=== PATIENT | male | born 1930 | race Caucasian/White ===

== ENCOUNTER 2016-10-05 09:14 | Emergency (ER) | payer OTHER, MEDICARE ==
[~2016-10-05] VITALS: Ht 170.2 cm; Wt 88.5 kg
--- NOTE | 2016-10-05 10:30 | ED EAR COMPLAINT ---
History of Present Illness General Chief Complaint: Ear Complaints Stated Complaint: R EAR PAIN Source: patient Exam Limitations: no limitations Vital Signs & Intake/Output Vital Signs & Intake/Output Vital Signs Date Time Temp Pulse Resp B/P B/P Pulse O2 O2 Flow FiO2 Mean Ox Delivery Rate 10/05 1107 98.4 76 18 126/84 98 Room Air 10/05 0924 98.6 94 16 130/84 97 Room Air Allergies Coded Allergies: shellfish derived (UNKNOWN 08/04/15) venom-honey bee (bee venom (honey bee)) (UNKNOWN 08/04/15) Reconcile Medications Gabapentin (Neurontin) 300 MG CAPSULE 1 CAP PO AD DIRECTED neuralgia 1 tab po qhs on day 1, 1 tab po qhs on day 2, 1 tab po bid x 2 days, then 1 tab po tid afterwards Triage Note: REPORTS 3 DAYS OF RIGHT EAR PAIN WITH NO HEARING LOSS. DENIED DISCHARGE. Triage Nurses Notes Reviewed? yes Onset: Gradual Duration: day(s): (3) Timing: no prior history Injury Environment: home Severity: moderate No Modifying Factors: none HPI: Patient is an 86-year-old male with history of hypertension and hyperlipidemia presenting to the emergency Department chief complaint of right ear pain. Pain has been on and off for 3 days. Patient reports about 50-100 episodes of sharp stabbing pain into the right ear. Denies any nausea vomiting fevers or chest pain or shortness of breath. Reports he may have had chills yesterday but is unsure. Has been using [id number] decongestants, Tylenol and Motrin with little relief. When pain comes on antibiotic 8 out of 10 and sharp. In between he is pain-free. Denies any changes in hearing. No dizziness. Remote history of similar symptoms with a perforated tympanic membrane. (ALEKSANDER STOREY) Past History Travel History Traveled to [place] past 21 day No Medical History Any Pertinent Medical History? see below for history Cardiovascular: hypertension, CARDIAC STENT HIGH CHOLESTEROL Gastrointestinal: GERD Surgical History Surgical History: non-contributory Psychosocial History What is your primary language [place] Tobacco Use: Quit <30 days ago Family History Hx Contributory? No (ALEKSANDER STOREY) Review of Systems Review of Systems Constitutional: Reports: no symptoms. Comments Review of systems: See HPI, All other systems negative. Constitutional, no chills or weight loss HEENT: No visual changes no congestion Cardiovascular: No chest pain ,palpitation , orthopnea or ankle swelling Skin, no jaundice no rashes Respiratory: No dyspnea cough sputum or hemoptysis GI: No nausea no vomiting : No dysuria No hematuria Muscle skeletal: no back pain, no neck pain, Neurologic: No numbness no confusion no h a Psych: No stress anxiety or depression,. Heme/endocrine: No bruising no bleeding no polyuria or polydipsia Immunology: No splenectomy or history of AIDS (ALEKSANDER STOREY) Physical Exam Physical Exam General Appearance: well developed/nourished, no apparent distress, alert, awake , comfortable Ears: Bilateral: canal normal, Tympanic normal. Comments: Well-developed well-nourished person in no acute distress HEENT: Pupils equally round and reactive to light and accommodation. Nose is atraumatic. External auditory canal and Tympanic membranes clear. Pharynx normal. No swelling or edema. no sinus tender to palpation. no mastoid tenderness. no preauricular tenderness or mass. Neck: Supple, no lymphadenopathy, normal range of motion without pain or tenderness Cardiovascular: Regular rate and rhythms no murmurs rubs or gallops, normal JVP Respiratory: Chest nontender. No respiratory distress.breath sounds clear to auscultation bilaterally Extremity: No edema Neuro: Alert oriented x3, motor sensory normal, cranial nerves II through XII grossly intact. Skin: No appreciable rash on exposed skin, skin is warm and dry. Psych: Mood and affect is normal, memory and judgment is normal. (ALEKSANDER STOREY) Progress Differential Diagnoses I considered the following diagnoses in my evaluation of the patient: oe,om, cerumen impaction, neuropathic pain, trigeminal neuralgia, perf tm, acs Plan of Care: Orders Procedure Date/time Status EKG 10/05 1041 Active Initial ED EKG: NSR (71 bpm) Comments: Ear pain is atypical in nature. Seems to be neuropathic as patient reports sudden onset sharp stabbing pain intermittently. Ear exam is otherwise unremarkable. Neurologically intact. Able to distinguish between sharp and dull sensation of the face. Unclear etiology of pain at this time. EKG is unchanged, normal sinus rhythm. Patient will follow up with PCP and ENT. Discussed with Dr. Zurita he agrees with plan. (ALEKSANDER STOREY) Departure Departure Time of Disposition: 1052 Disposition: HOME OR SELF CARE Condition: Stable Clinical Impression Primary Impression: Otalgia Qualifiers: Laterality: right Qualified Code: H92.01 - Otalgia, right ear Referrals: HUMBERTO DECKER,ZAIN QUIGLEY MD,HEIDE DEL ANGEL MD,KEMAR GUILLEN MD,NANCY ROSA MD,MICHEL Camilo (PCP/Family) Additional Instructions: Follow-up with ear nose and throat doctor call to make an appointment. Take gabapentin as prescribed to help with ear pain. Return for worsening symptoms such as dizziness, feeling off balance, chest pain shortness of breath or concerns. Departure Forms: Customer Survey General Discharge Information Prescriptions: Current Visit Scripts Gabapentin (Neurontin) 1 CAP PO AD DIRECTED #30 CAP 1 tab po qhs on day 1, 1 tab po qhs on day 2, 1 tab po bid x 2 days, then 1 tab po tid afterwards (ALEKSANDER STOREY) PA/ADVANCED DEVELOPER Co-Sign Statement Statement: ED Attending supervision documentation- x I saw and evaluated the patient. I have also reviewed all the pertinent lab results and diagnostic results. I agree with the findings and the plan of care as documented in the PA's/ADVANCED DEVELOPER's documentation. [] I have reviewed the ED Record and agree with the PA's/ADVANCED DEVELOPER's documentation. [] Additions or exceptions (if any) to the PAs/ADVANCED DEVELOPER's note and plan are summarized below: [] (PATRICIA DECKER,RIVERA)
[2016-10-05] MEDS ORDERED: NEURONTIN300 M1 PO (10:51)
[2016-10-05 11:07] VITALS: BP 126/84
== END 2016-10-05 11:08 ==
LOC: ERH 09:14
DX: H92.01 Otalgia, right ear (principal)
CPT/HCPCS: 93005; 93010

== ENCOUNTER 2016-10-21 07:08 | Emergency (ER) | payer OTHER, MEDICARE ==
[~2016-10-21] VITALS: Ht 170.2 cm; Wt 88.5 kg
[~2016-10-21 07:08] MED LIST: NEURONTIN300 M1 PO
[2016-10-21 07:34] LABS: ABSOLUTE BASOPHIL COUNT 0 /CUMM (0.0-0.2); ABSOLUTE EOSINOPHIL COUNT 0.2 /CUMM (0.0-0.7); ABSOLUTE GRANULOCYTE CT 10.1 /CUMM (1.4-6.5); ABSOLUTE LYMPH COUNT 1.1 /CUMM (1.2-3.4); ABSOLUTE MONOCYTE COUNT 0.5 /CUMM (0.10-0.60); BASOPHIL % 0.1 % (0.0-2.0); HEMATOCRIT 37.5 % (42-52); MEAN CORPUSCULAR HGB 30.1 PG (27.0-31.0); MEAN CORPUSCULAR HGB CONC 33.1 G/DL (33.0-37.0); MEAN CORPUSCULAR VOLUME 90.9 FL (80.0-94.0); MEAN PLATELET VOLUME 8.5 FL (7.4-10.4); RED BLOOD CELL CT 4.13 /CUMM (4.70-6.10)
--- NOTE | 2016-10-21 07:36 | ED CARDIAC/CP/PALPITATIONS ---
History of Present Illness General Chief Complaint: Chest Pain Stated Complaint: L SIDED CHEST PAIN, HX OF SHINGLES IN R EAR Source: patient, family, old records Exam Limitations: no limitations Vital Signs & Intake/Output Vital Signs & Intake/Output Vital Signs Date Time Temp Pulse Resp B/P B/P Pulse O2 O2 Flow FiO2 Mean Ox Delivery Rate 10/21 1916 74 16 130/72 98 Room Air 10/21 1642 98.6 71 18 113/68 98 Room Air 10/21 1555 98.2 70 20 107/55 98 Room Air 10/21 1051 75 18 143/75 96 10/21 0902 97.4 69 18 145/73 96 Room Air 10/21 0742 98 Room Air 10/21 0714 97.4 75 18 136/65 96 Room Air Allergies Coded Allergies: shellfish derived (UNKNOWN 08/04/15) venom-honey bee (bee venom (honey bee)) (UNKNOWN 08/04/15) Reconcile Medications Acyclovir 400 MG TABLET 1 TAB PO Q5 SHINGLES (Reported) Ascorbate Calcium (Vitamin C) 500 MG TABLET 1 TAB PO DAILY VITAMIN SUPPORT ( Reported) Aspirin (Ecpirin) 325 MG TABLET.DR 1 TAB PO DAILY HEART HEALTH (Reported) Carvedilol 6.25 MG TABLET 1 TAB PO BID HEART (Reported) Gabapentin (Neurontin) 300 MG CAPSULE 1 CAP PO AD DIRECTED neuralgia 1 tab po qhs on day 1, 1 tab po qhs on day 2, 1 tab po bid x 2 days, then 1 tab po tid afterwards Ibuprofen (Advil) 200 MG TABLET 2 TAB PO TID PRN PAIN (Reported) Lisinopril 10 MG TABLET 1 TAB PO DAILY HEART (Reported) Methylprednisolone. (Medrol) 4 MG TAB.DS.PK 1 DP PO AD CHEST PAIN 6 on day 1 then reduce by one tablet daily until gone Mirabegron (Myrbetriq) 50 MG TAB.ER.24H 1 TAB PO DAILY BLADDER (Reported) Multivitamin (Daily Multiple Vitamin) 1 EACH TABLET 1 TAB PO DAILY VITAMIN SUPPORT (Reported) Omeprazole 40 MG CAPSULE.DR 1 CAP PO DAILY ACID REFLUX (Reported) Oxycodone HCl 5 MG CAPSULE 1 CAP PO 4XDP PRN PAIN Polycarbophil (Fiber) 625 MG TABLET 3 TAB PO DAILY SUPPLEMENT (Reported) Simvastatin (Simvastatin*) 80 MG TABLET 1 TAB PO DAILY CHOLESTEROL (Reported) Triage Note: 86 YO MALE BIBA FROM HOME. PT C/O L SIDED NONRADIATING CHEST PAIN FOR "A COUPLE DAYS" PT CURRENTLY BEING TREATED FOR SHINGLES IN THE R EAR. DENIES SOB, ABD PAIN. STATE PAIN IS 10/10 IN NATURE AND FEELS BETTER WHEN HE IS STANDING UP BUT WORSE WITH LAYING DOWN. Triage Nurses Notes Reviewed? yes HPI: Patient states that for the past 2 days he has been having this sharp jabbing pain in the left central portion of his chest. The pain will last a few seconds and then decreased in intensity but did not go away entirely. At its worst the pain is 7 out of 10 and when the pain decreases it goes down to a 2 out of 10. There are no aggravating or mitigating factors. There is no radiation. Patient denies any shortness of breath or hemoptysis. Patient states that the pain feels. Similar to the pain that he had with the shingles. Patient is currently being treated for shingles above his right ear and then the right posterior portion of his scalp. Patient states that the pain went away a few days ago but it feels very similar to the pain that he is now having in his chest. There is no rash on his chest. Patient has no risk factors for disseminated zoster. Past History Travel History Traveled to [place] past 21 day No Medical History Any Pertinent Medical History? see below for history Neurological: NONE EENT: NONE Cardiovascular: hypertension, CARDIAC STENT HIGH CHOLESTEROL Respiratory: NONE Gastrointestinal: GERD Hepatic: NONE Renal: NONE Musculoskeletal: NONE Psychiatric: NONE Endocrine: NONE Blood Disorders: NONE Cancer(s): NONE IDENTIFIER HORSE/Reproductive: NONE Surgical History Surgical History: PTCA WITH STENT IN OBTUSE MARGINAL Psychosocial History What is your primary language Yi Tobacco Use: Quit >30 days ago ETOH Use: denies use Illicit Drug Use: denies illicit drug use Family History Hx Contributory? No Review of Systems Review of Systems Constitutional: Reports: no symptoms. EENTM: Reports: no symptoms. Respiratory: Reports: no symptoms. Cardiovascular: Reports: see HPI, chest pain. GI: Reports: no symptoms. Genitourinary: Reports: no symptoms. Musculoskeletal: Reports: no symptoms. Skin: Reports: no symptoms. Neurological/Psychological: Reports: no symptoms. Hematologic/Endocrine: Reports: no symptoms. Immunologic/Allergic: Reports: no symptoms. All Other Systems: Reviewed and Negative Physical Exam Physical Exam General Appearance: well developed/nourished, alert, awake, moderate distress Head: atraumatic, normal appearance Eyes: Bilateral: PERRL, EOMI. Ears, Nose, Throat: normal pharynx, normal ENT inspection, hearing grossly normal Neck: normal inspection, supple, full range of motion, NO JVD Respiratory: normal breath sounds, chest non-tender, no respiratory distress, lungs clear Cardiovascular: regular rate/rhythm, normal peripheral pulses Gastrointestinal: normal bowel sounds, soft, non-tender Back: normal inspection, normal range of motion Extremities: normal inspection, normal capillary refill, normal range of motion, no edema Neurologic/Psych: no motor/sensory deficits, awake, alert, oriented x 3, normal gait, normal mood/affect Skin: intact, normal color, warm/dry Lymphatic: no anterior cervical lisandro Core Measures ACS in differential dx? Yes Severe Sepsis Present: No Septic Shock Present: No Progress Differential Diagnosis: AMI, aortic dissection, cholecystitis, costochondritis, musculoskeletal pain, pneumonia, pneumothorax, pulmonary embolism Plan of Care: Orders Procedure Date/time Status Heart Healthy Diet 10/21 L Active Add-on Test (ER Only) 10/21 1256 Active TROPONIN LEVEL 10/21 1100 Complete EKG 10/21 1100 Active Telemetry/Machine Striper 10/21 0735 Active WESTERGREN SED RATE 10/21 0726 Complete TROPONIN LEVEL 10/21 0717 Complete LYME TITRE 10/21 0717 Active COMPREHENSIVE METABOLIC PANEL 10/21 0717 Complete CBC WITHOUT DIFFERENTIAL 10/21 0717 Complete EKG 10/21 0715 Active Laboratory Tests 10/21/16 1047: Troponin I < 0.01 10/21/16 0802: Anion Gap 11, Estimated GFR > 60, BUN/Creatinine Ratio 22.2, Glucose 132 H, Calcium 9.5, Total Bilirubin 1.0, AST 75 H, ALT 177 H, Alkaline Phosphatase 301 H, Troponin I < 0.01, Total Protein 6.3, Albumin 3.6, Globulin 2.7, Albumin /Globulin Ratio 1.3 10/21/16 0726: CBC w Diff NO MAN DIFF REQ, RBC 4.13 L, MCV 90.9, MCH 30.1, RDW 14.0, MPV 8.5, Gran % 84.3 H, Lymphocytes % 9.2 L, Monocytes % 4.4, Eosinophils % 2.0, Basophils % 0.1, Absolute Granulocytes 10.1 H, Absolute Lymphocytes 1.1 L, Absolute Monocytes 0.5, Absolute Eosinophils 0.2, Absolute Basophils 0, PUBS MCHC 33.1, ESR Westergren 70 H 10/21/16 0717: Lyme Disease Antibody Pending Diagnostic Imaging: Viewed by Me: Radiology Read, CT Scan, Nuclear Medicine. Discussed w/RAD: Radiology Read, CT Scan, Nuclear Medicine. Radiology Impression: PATIENT: SERG GONZALEZ PRESENT AGE: 86 PATIENT ACCOUNT NO: [id number] : 32 LOCATION: [facility] ORDERING PHYSICIAN: ALICE KEITH MD SERVICE DATE: 10/21/16 EXAM TYPE: CAT - CTA CHEST-AORTIC DISSECTION EXAMINATION: CT ANGIOGRAM CHEST ATTENTION AORTA CLINICAL INFORMATION: Pain. COMPARISON: VQ scan and chest portable done earlier the same day. TECHNIQUE: Routine CTA imaging before and after uneventful intravenous administration of 95 mL Optiray [address] of the chest was then performed. Coronal and sagittal reformatted and MIP images of the chest were completed at the CT scanner and reviewed on the PACS workstation. No adverse effects were reported. DLP: 837 mGy-cm FINDINGS: There are moderate atherosclerotic aortic calcifications without evidence of aneurysm. There is fairly extensive coronary calcifications as well. Pulmonary arterial tree is well-opacified as well without evidence of filling defects to suggest pulmonary emboli. There is no mediastinal or hilar lymphadenopathy identified. There is minimal bibasilar atelectasis. The lungs are otherwise well-expanded and clear. No suspicious pulmonary nodules or evidence of airspace disease. Chest wall and axilla appear unremarkable. No effusions are seen. There are multiple small gallbladder calculi dependently in the neck of the gallbladder without evidence of acute cholecystitis. No aggressive or acute appearing osseous lesions. There are old healed right-sided posterior rib fractures. IMPRESSION: No acute process. DICTATED BY: ZUHAIR BOLANOS MD DATE/TIME DICTATED:10/21/161923 ELECTRONIC RESOURCES LIBRARIAN:CARMEN DATE/TIME TRANSCRIBED:1923 CONFIDENTIAL, DO NOT COPY WITHOUT APPROPRIATE AUTHORIZATION. < Electronically signed in Other Vendor System> SIGNED BY: ZUHAIR BOLANOS MD 10/21/16 193, PATIENT: SERG GONZALEZ PRESENT AGE: 86 PATIENT ACCOUNT NO: [id number] : 32 LOCATION: [facility] ORDERING PHYSICIAN: ALICE KEITH MD SERVICE DATE: 10/21/16 EXAM TYPE: NUC - LUNG SCAN (V/Q) EXAMINATION: PULMONARY VENTILATION PERFUSION STUDY CLINICAL INFORMATION: Chest pain and shortness of breath. COMPARISON: Chest x-ray dated 10/21/2016 TECHNIQUE: Serial gamma scintillation camera images were obtained over the posterior chest during the single breath, equilibrium rebreathing and washout of 6.8 mCi Xe 133 gas. The patient then received 4.4 mCi Tc-99m MAA intravenously and a 6-view perfusion study was performed. FINDINGS: Ventilation images: On the single breath and equilibrium images there is homogeneous distribution of gas bilaterally. During the washout phase there is minimal retention noted in the lower left lung. Perfusion images: Right lung demonstrates fairly homogeneous perfusion. Left lung demonstrates small subsegmental perfusion defect in the anteromedial aspect of the apical segment. Nonsegmental defect noted in the central hilar/perihilar region. IMPRESSION: 1. Single small subsegmental perfusion defect anteromedial aspect left apical segment. Findings are compatible with low probability for acute pulmonary embolism. 2. Minimal retention of activity left lower lung on washout ventilation images may represent underlying mild air trapping or COPD. DICTATED BY: ERMA STACY MD DATE/TIME DICTATED:10/21/161312 ELECTRONIC RESOURCES LIBRARIAN: CARMEN DATE/TIME TRANSCRIBED:10/21/161312 CONFIDENTIAL, DO NOT COPY WITHOUT APPROPRIATE AUTHORIZATION. <Electronically signed in Other Vendor System> SIGNED BY: ERMA STACY MD 10/21/16 1325 CXR Impression: PATIENT: SERG GONZALEZ PRESENT AGE: 86 PATIENT ACCOUNT NO: [id number] : 32 LOCATION: [facility] ORDERING PHYSICIAN: ALICE KEITH MD SERVICE DATE: 10/21/16 EXAM TYPE: RAD - XRY- PORTABLE CHEST XRAY EXAMINATION: XR PORTABLE CHEST CLINICAL INFORMATION: Chest pain COMPARISON: Chest x-ray of 06/18/2015, 12/16/2014 TECHNIQUE: Portable frontal view of the chest was obtained. FINDINGS: The cardia mediastinal silhouette is stable and normal. No abnormal tracheal deviation. The aortic arch calcifications are seen. The lungs are normally and symmetrically expanded. No focal consolidation, changes of congestion or pleural effusions. No pneumothorax. Chronic well-healed fractures of the posterior segments of the right sixth through ninth ribs are again noted. No acute osseous abnormality. Visualized upper abdomen is unremarkable. IMPRESSION: No acute pulmonary process. No significant interval change is noted compared to last study. DICTATED BY: JOSE ROBERTO DUNBAR MD DATE/TIME DICTATED:10/21/16757 ELECTRONIC RESOURCES LIBRARIAN: CARMEN DATE/TIME TRANSCRIBED:10/21/16757 CONFIDENTIAL, DO NOT COPY WITHOUT APPROPRIATE AUTHORIZATION. <Electronically signed in Other Vendor System> SIGNED BY: JOSE ROBERTO DUNBAR MD 10/21/16 0805 Pre-Hospital EKG: SR WITH BOARDERLINE FIRST DEGREE HB, NO ISCHEMIC CHANGES Initial ED EKG: SR WITH BOARDERLINE FIRST DEGREE HB, NO ISCHEMIC CHANGES, NO CHANGE FROM PRIOR Prior EKG: unchanged Repeat EKG: unchanged Rhythm Strip: normal sinus rhythm Comments: PT HAS BEEN SEEN BY DR. WILLS CASE DISCUSSED SARITA ANDERSON, ESR WILL BE REPEATED AN OUTPATINET. Patient states that ever since he got the steroids he has not had any more episodes of the pain. Departure Departure Disposition: HOME OR SELF CARE Condition: Stable Clinical Impression Primary Impression: Chest pain, unspecified Qualifiers: Chest pain type: other chest pain Qualified Code: R07.89 - Other chest pain Referrals: Derik WILLS MD, MD,MICHEL Camilo (PCP/Family) Additional Instructions: FOLLOW UP WITH DR. ROSA TAKE STEROIDS PRESCRIBED TAKE PAIN MEDS NEEDED RETURN FOR ANY CONCERNS Departure Forms: Customer Survey General Discharge Information Prescriptions: Current Visit Scripts Methylprednisolone. (Medrol) 1 DP PO AD #1 DP 6 on day 1 then reduce by one tablet daily until gone Oxycodone HCl 1 CAP PO 4XDP PRN PAIN #20 CAP Critical Care Note Critical Care Note Critical Care Time: mins: (45 min)
[2016-10-21 07:51] LABS: GRANULOCYTE % 84.3 % (42.2-75.2); PLATELET COUNT 283 /CUMM (130-400)
--- NOTE | 2016-10-21 08:05 | RADIOLOGY REPORT ---
EXAMINATION: XR PORTABLE CHEST CLINICAL INFORMATION: Chest pain COMPARISON: Chest x-ray of 06/18/2015, 12/16/2014 TECHNIQUE: Portable frontal view of the chest was obtained. FINDINGS: The cardia mediastinal silhouette is stable and normal. No abnormal tracheal deviation. The aortic arch calcifications are seen. The lungs are normally and symmetrically expanded. No focal consolidation, changes of congestion or pleural effusions. No pneumothorax. Chronic well-healed fractures of the posterior segments of the right sixth through ninth ribs are again noted. No acute osseous abnormality. Visualized upper abdomen is unremarkable. IMPRESSION: No acute pulmonary process. No significant interval change is noted compared to last study.
[2016-10-21] MEDS ORDERED: MYRBETRIQ50 M1 PO (08:12)
[2016-10-21] MEDS ORDERED: OMEPRAZOLE40 M1 PO (08:13)
[2016-10-21] MEDS ORDERED: SIMVASTATIN80 M1 PO (08:13)
[2016-10-21] MEDS ORDERED: LISINOPRIL10 M1 PO (08:13)
[2016-10-21] MEDS ORDERED: CARVEDILOL6.25 M1 PO (08:13)
[2016-10-21] MEDS ORDERED: FIBER625 MG PO (08:14)
[2016-10-21] MEDS ORDERED: DAILY MULTIPLE1 EACH PO (08:14)
[2016-10-21] MEDS ORDERED: ECPIRIN325 MG PO (08:14)
[2016-10-21] MEDS ORDERED: ADVIL200 M2 PO (08:15)
[2016-10-21] MEDS ORDERED: VITAMIN C500 M6 PO (08:15)
[2016-10-21] MEDS ORDERED: ACYCLOVIR400 M1 PO (08:16)
--- NOTE | 2016-10-21 13:25 | NUCLEAR MEDICINE REPORT ---
EXAMINATION: PULMONARY VENTILATION PERFUSION STUDY CLINICAL INFORMATION: Chest pain and shortness of breath. COMPARISON: Chest x-ray dated 10/21/2016 TECHNIQUE: Serial gamma scintillation camera images were obtained over the posterior chest during the single breath, equilibrium rebreathing and washout of 6.8 mCi Xe 133 gas. The patient then received 4.4 mCi Tc-99m MAA intravenously and a 6-view perfusion study was performed. FINDINGS: Ventilation images: On the single breath and equilibrium images there is homogeneous distribution of gas bilaterally. During the washout phase there is minimal retention noted in the lower left lung. Perfusion images: Right lung demonstrates fairly homogeneous perfusion. Left lung demonstrates small subsegmental perfusion defect in the anteromedial aspect of the apical segment. Nonsegmental defect noted in the central hilar/perihilar region. IMPRESSION: 1. Single small subsegmental perfusion defect anteromedial aspect left apical segment. Findings are compatible with low probability for acute pulmonary embolism. 2. Minimal retention of activity left lower lung on washout ventilation images may represent underlying mild air trapping or COPD.
--- NOTE | 2016-10-21 19:36 | CT SCAN REPORT ---
EXAMINATION: CT ANGIOGRAM CHEST ATTENTION AORTA CLINICAL INFORMATION: Pain. COMPARISON: VQ scan and chest portable done earlier the same day. TECHNIQUE: Routine CTA imaging before and after uneventful intravenous administration of 95 mL Optiray [address] of the chest was then performed. Coronal and sagittal reformatted and MIP images of the chest were completed at the CT scanner and reviewed on the PACS workstation. No adverse effects were reported. DLP: 837 mGy-cm FINDINGS: There are moderate atherosclerotic aortic calcifications without evidence of aneurysm. There is fairly extensive coronary calcifications as well. Pulmonary arterial tree is well-opacified as well without evidence of filling defects to suggest pulmonary emboli. There is no mediastinal or hilar lymphadenopathy identified. There is minimal bibasilar atelectasis. The lungs are otherwise well-expanded and clear. No suspicious pulmonary nodules or evidence of airspace disease. Chest wall and axilla appear unremarkable. No effusions are seen. There are multiple small gallbladder calculi dependently in the neck of the gallbladder without evidence of acute cholecystitis. No aggressive or acute appearing osseous lesions. There are old healed right-sided posterior rib fractures. IMPRESSION: No acute process.
[2016-10-21] MEDS ORDERED: MEDROL4 M2 PO (20:12)
[2016-10-21] MEDS ORDERED: OXYCODONE HCL5 M2 PO (20:12)
[2016-10-21 20:27] VITALS: BP 133/68
[2016-10-23] MEDS ORDERED: ASPIRIN EC81 M1 PO (13:36)
== END 2016-10-21 20:28 ==
LOC: ERH 07:08
PROVIDERS: Emergency Medicine
DX: R07.89 Other chest pain (principal)
CPT/HCPCS: 86618; 78582; 93005; 93010; 96374; 96375; A9540; A9558; J0131; J1200; J1885